=== PATIENT | male | born 1960 | race Hispanic/Latino ===

== ENCOUNTER 2022-11-30 18:12 | Observation (INO) | payer BC ==
[2022-11-30 18:28] VITALS: BMI 32.4
[2022-11-30 19:31] LABS: HBSAg Index 0.16 S/CO (0-0.99); Hep B Surf Ag Non-Reactive S/CO (NonReactive)
[2022-11-30 19:38] LABS: SARS-CoV-2 NAA Rapid Test Not Detected (NotDetected)
[2022-11-30] MEDS ORDERED: Dextrose 50% Abboject 50 ML SYRINGE SLOW IVP PRN (19:47)
[2022-11-30] MEDS ORDERED: Dextrose 5% in Water 1,000 ML IV PRN (19:47)
[2022-11-30] MEDS ORDERED: HumaLOG 300 UNITS/3 ML VIAL SC PRN ×2 (19:47)
[2022-11-30] MEDS ORDERED: Acetaminophen 325 MG TAB PO PRN (19:49)
[2022-11-30] MEDS ORDERED: Senokot S 8.6-50 MG TAB PO PRN (19:49)
[2022-11-30] MEDS ORDERED: Ondansetron ODT 4 MG TAB PO PRN (19:49)
[2022-11-30 20:51] LABS: CKMB 3.3 ng/mL (0-6.6)
[2022-11-30] MEDS ORDERED: Famotidine 20 MG TAB PO SCH (21:00)
[2022-11-30 23:53] LABS: HBSAB Concentration 54.06 mIU/mL; Hep B Surf AB Reactive (NonReactive)
[2022-12-01 00:16] LABS: CKMB 3.1 ng/mL (0-6.6)
[2022-12-01 04:51] LABS: #Eosinphils 0.3 10x3/uL (0.0-0.5); #Monocytes 0.8 10x3/uL (0.0-1.1); #Neutrophils 4.3 10x3/uL (1.5-8.4); %Basophils 0.4 % (0.0-2.0); %Eosinophils 4.3 % (0.0-6.0); %Lymphocytes 21.2 % (18.0-47.0); %Monocytes 11.8 % (0.0-10.0); %Neutrophils 62.2 % (40.0-75.0); Mean Corpuscular HGB CONC 31.8 g/dL (32.0-36.0); Mean Corpuscular Hemoglobin 27.3 pg (27.0-33.0); Mean Corpuscular Volume 85.9 fl (81.2-95.1); Mean Platelet Volume 9.6 fl (7.4-10.4); Platelet Count 195 10x3/uL (150-450); RBC Distribution Width 13.2 % (11.5-14.5); Red Blood Cell (RBC) Count 4.03 10x6/uL (4.32-5.72)
[2022-12-01 04:53] LABS: Anion Gap 20 mmol/L (10-20); BUN (Urea Nitrogen) 90 mg/dL (8.4-25.7); Calc. Creatinine Clearance 6 mL/min (70-130); Calcium 9.4 mg/dL (7.8-10.44); Carbon Dioxide 22 mmol/L (23-31); Chloride 102 mmol/L (98-107); Estimated GFR 3; Glucose 112 mg/dL (80-115); Magnesium 2.4 mg/dL (1.6-2.6); Phosphorus 6.9 mg/dL (2.3-4.7); Potassium 4.5 mmol/L (3.5-5.1); Sodium 139 mmol/L (136-145)
[2022-12-01] MEDS: Aspirin 81 mg Enteric Coated Tablet PO SCH (08:15)
[2022-12-01] MEDS: Atorvastatin Calcium 40 MG TAB PO SCH (08:15)
[2022-12-01] MEDS ORDERED: HYDROcodone/Acetaminophen 5/325 mg Tablet PO PRN (12:04)
[2022-12-01] MEDS: hydrALAZINE 25 MG TAB PO SCH (15:37)
[2022-12-01] MEDS ORDERED: Amlodipine 5 MG TAB PO SCH (17:00)
[2022-12-01] MEDS: Carvedilol 25 MG TAB PO SCH (17:20)
[2022-12-01] MEDS ORDERED: cloNIDine 0.1 MG TAB PO SCH (18:45)
[2022-12-01] MEDS ORDERED: Famotidine 20 MG TAB PO SCH (21:00)
[2022-12-01] MEDS ORDERED: Metoprolol Tartrate 50 MG TAB PO SCH (21:00)
[2022-12-01] MEDS ORDERED: Clopidogrel Bisulfate 75 MG TAB PO SCH (21:00)
[2022-12-02] MEDS: hydrALAZINE 25 MG TAB PO SCH ×2 (00:29→09:13)
[2022-12-02] MEDS: Lantus 1000 UNITS/10 ML VIAL SC SCH ×2 (04:37→09:15)
[2022-12-02 04:49] LABS: #Eosinphils 0.4 10x3/uL (0.0-0.5); #Monocytes 0.9 10x3/uL (0.0-1.1); #Neutrophils 4.5 10x3/uL (1.5-8.4); %Basophils 0.4 % (0.0-2.0); %Eosinophils 5.1 % (0.0-6.0); %Lymphocytes 22.3 % (18.0-47.0); %Monocytes 11.6 % (0.0-10.0); %Neutrophils 60.5 % (40.0-75.0); Hemoglobin 11.1 g/dL (13.5-17.5); Mean Corpuscular HGB CONC 31.7 g/dL (32.0-36.0); Mean Corpuscular Hemoglobin 27.2 pg (27.0-33.0); Mean Corpuscular Volume 85.8 fl (81.2-95.1); Mean Platelet Volume 9.5 fl (7.4-10.4); Platelet Count 189 10x3/uL (150-450); RBC Distribution Width 13.2 % (11.5-14.5); Red Blood Cell (RBC) Count 4.08 10x6/uL (4.32-5.72); White Blood Cell (WBC) Count 7.4 10x3/uL (3.5-10.5)
[2022-12-02 05:05] LABS: Anion Gap 20 mmol/L (10-20); BUN (Urea Nitrogen) 84 mg/dL (8.4-25.7); Calc. Creatinine Clearance 6 mL/min (70-130); Calcium 9.2 mg/dL (7.8-10.44); Carbon Dioxide 24 mmol/L (23-31); Chloride 100 mmol/L (98-107); Estimated GFR 3; Glucose 125 mg/dL (80-115); Potassium 5.1 mmol/L (3.5-5.1); Sodium 139 mmol/L (136-145)
[2022-12-02] MEDS ORDERED: Calcitriol 0.25 MCG CAP PO SCH (09:00)
[2022-12-02] MEDS ORDERED: Amlodipine 5 MG TAB PO SCH (09:00)
[2022-12-02] MEDS ORDERED: Clopidogrel Bisulfate 75 MG TAB PO SCH (09:00)
[2022-12-02] MEDS: Carvedilol 25 MG TAB PO SCH (09:13)
[2022-12-02] MEDS: Atorvastatin Calcium 40 MG TAB PO SCH (09:13)
[2022-12-02] MEDS: Aspirin 81 mg Enteric Coated Tablet PO SCH (09:14)
[2022-12-02] MEDS ORDERED: Losartan 25 MG TAB PO SCH (10:00)
[2022-12-02 12:07] VITALS: BP 165/52; TEMP 98.2
[2022-12-02] MEDS ORDERED: Furosemide 40 MG TAB PO SCH (14:00)
[2022-12-03] MEDS ORDERED: Losartan 25 MG TAB PO SCH (09:00)
== END 2022-12-02 12:00 | disposition home or self-care (01) ==
LOC: INTOOBSV 18:12 → CSHTELE 18:12 → UNDOADMOB 18:12 → CSHTELE 12-01 08:46
PROVIDERS: ADMIT Internal Medicine; ATTEND Internal Medicine
DX: I95.9 Hypotension, unspecified (principal); I12.0 Hypertensive chronic kidney disease with stage 5 chronic kidney disease or end stage renal disease; E11.22 Type 2 diabetes mellitus with diabetic chronic kidney disease; N18.6 End stage renal disease; D63.1 Anemia in chronic kidney disease; Z99.2 Dependence on renal dialysis; I25.10 Atherosclerotic heart disease of native coronary artery without angina pectoris; E87.1 Hypo-osmolality and hyponatremia; E83.39 Other disorders of phosphorus metabolism; E87.20 Acidosis, unspecified; R60.0 Localized edema; E88.09 Other disorders of plasma-protein metabolism, not elsewhere classified; E66.9 Obesity, unspecified; M54.9 Dorsalgia, unspecified; E78.2 Mixed hyperlipidemia; G89.29 Other chronic pain; Z20.822 Contact with and (suspected) exposure to COVID-19; E07.9 Disorder of thyroid, unspecified; K21.9 Gastro-esophageal reflux disease without esophagitis; N25.81 Secondary hyperparathyroidism of renal origin; Z79.82 Long term (current) use of aspirin; Z79.02 Long term (current) use of antithrombotics/antiplatelets; Z79.899 Other long term (current) drug therapy; Z79.4 Long term (current) use of insulin; Z87.891 Personal history of nicotine dependence; Z95.1 Presence of aortocoronary bypass graft; Z68.32 Body mass index [BMI] 32.0-32.9, adult
CPT/HCPCS: 36415; 36416; 70450; 72072; 80048; 82553; 83735; 84100; 85025; 86706; 87340; 90945; 93005; 93010; 93306; 93880; 94760; G0257; G0378; Q0162; U0002